=== PATIENT | male | born 1980 | race Caucasian/White ===

== ENCOUNTER 2016-06-19 17:32 | Emergency (ER) | payer SELFPAY ==
[~2016-06-19] VITALS: Ht 185.4 cm; Wt 72.6 kg
[2016-06-19] MEDS ORDERED: LORAZEPAM 1 MG TABLET PO ONE ×2 (18:00→21:00)
[2016-06-19] MEDS ORDERED: LORAZEPAM 1 MG TABLET ONE ×2 (18:01→20:52)
[2016-06-19 18:22] LABS: BASOPHILS % (AUTO) 0.7 % (0.0-2.0); DIFF TOTAL % 100 %; EOSINOPHILS # (AUTO) 0.3 /CMM (0.0-0.7); EOSINOPHILS % (AUTO) 3.9 % (0.0-6.0); HEMATOCRIT 42 % (39-51); HEMOGLOBIN 13.8 g/dL (13.5-17.5); LYMPHOCYTES # (AUTO) 1.7 /CMM (0.8-4.8); LYMPHOCYTES % (AUTO) 25.2 % (20.0-44.0); MEAN CORPUSCULAR HEMOGLOBIN 29 PG (26.0-33.0); MEAN CORPUSCULAR HGB CONC 33 g/dl (31.0-36.0); MEAN CORPUSCULAR VOLUME 86 fL (80-96); MONOCYTES # (AUTO) 0.3 /CMM (0.1-1.30); MONOCYTES % (AUTO) 5.1 % (2.0-12.0); NEUTROPHILS # (AUTO) 4.4 /CMM (1.8-8.9); NEUTROPHILS % (AUTO) 65.1 % (43.0-81.0); PLATELET COUNT (AUTO) 453 /CMM (150-450); RED BLOOD CELL COUNT(AUTO) 4.83 MIL/uL (4.5-6.0); WHITE BLOOD COUNT (AUTO) 6.8 K/uL (4.3-11.0)
[2016-06-19 18:24] LABS: CANNABINOID, URINE NEGATIVE (NEGATIVE); PHENCYCLIDINE SCREEN,URINE NEGATIVE (NEGATIVE)
[2016-06-19 18:28] LABS: ADD UA MICROSCOPIC NO; KETONES,URINE NEGATIVE (NEGATIVE); LEUKOCYTE ESTERASE ,URINE NEGATIVE (NEGATIVE); PH,URINE 6.5 (5.0-8.0)
[2016-06-19 19:16] LABS: ANION GAP 13 (5-14); CALCIUM, SERUM 9.4 mg/dL (8.5-10.1); CARBON DIOXIDE 27 mmol/L (21-32); CHLORIDE 103 mmol/L (98-107); GFR 84 mL/min (>60); GLUCOSE 102 mg/dL (74-106); POTASSIUM 4.1 mmol/L (3.5-5.1); SODIUM SERUM 139 mmol/L (136-145); UREA NITROGEN, BLOOD 8 mg/dL (7-18)
[2016-06-19 19:23] LABS: ALANINE AMINOTRANSFERASE 31 U/L (12-78); ALBUMIN 4.2 g/dL (3.4-5.0); ASPARTATE AMINOTRANSFERASE 15 U/L (15-37); BILIRUBIN,DIRECT 0.1 mg/dL (0.0-0.2); BILIRUBIN,TOTAL 0.8 mg/dL (0.2-1.0); INDIRECT BILIRUBIN 0.7 mg/dL (0.0-1.1); TOTAL PROTEIN, SERUM 7.9 g/dL (6.4-8.2)
[2016-06-19 19:27] LABS: ACETAMINOPHEN 0 ug/ml (10-30)
[2016-06-20] MEDS ORDERED: ACETAMINOPHEN ES 500 MG TABLET PO ONE
[2016-06-20] MEDS ORDERED: ACETAMINOPHEN ES 500 MG TABLET ONE (00:03)
[2016-06-20] MEDS ORDERED: LORAZEPAM 1 MG TABLET PO ONE (01:30)
[2016-06-20] MEDS ORDERED: LORAZEPAM 1 MG TABLET ONE (01:45)
[2016-06-20 01:54] VITALS: BP 124/74
== END 2016-06-20 01:54 | disposition home or self-care (01) ==
LOC: ER 17:33
DX: F41.9 Anxiety disorder, unspecified (principal); F32.9 Major depressive disorder, single episode, unspecified
CPT/HCPCS: 36415; 80048; 80076; 80305; 81001; 85025; 99284; A4606; G0480; G0481; Z7610; 81000-TC; G6039-TC

== ENCOUNTER 2017-08-21 02:45 | Emergency (ER) | payer MEDICAID, OTHER ==
[~2017-08-21] VITALS: Ht 185.4 cm; Wt 63.5 kg
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
[2017-08-21 03:06] LABS: BASOPHILS % (AUTO) 0.1 % (0.0-2.0); EOSINOPHILS % (AUTO) 0.9 % (0.0-6.0); HEMATOCRIT 27 % (39-51); HEMOGLOBIN 9.1 g/dL (13.5-17.5); LYMPHOCYTES # (AUTO) 1.7 /CMM (0.8-4.8); LYMPHOCYTES % (AUTO) 11.7 % (20.0-44.0); MEAN CORPUSCULAR HGB CONC 33 g/dl (31.0-36.0); MEAN CORPUSCULAR VOLUME 83 fL (80-96); MONOCYTES # (AUTO) 1.1 /CMM (0.1-1.30); MONOCYTES % (AUTO) 8.1 % (2.0-12.0); NEUTROPHILS # (AUTO) 11.2 /CMM (1.8-8.9); NEUTROPHILS % (AUTO) 79.2 % (43.0-81.0); PLATELET COUNT (AUTO) 589 /CMM (150-450); RDW COEFFICIENT OF VARIATION 19.5 (11.5-15.0); RED BLOOD CELL COUNT(AUTO) 3.32 MIL/uL (4.5-6.0); WHITE BLOOD COUNT (AUTO) 14.2 K/uL (4.3-11.0)
[2017-08-21 03:16] LABS: CARBON DIOXIDE 25 mmol/L (21-32); CHLORIDE 99 mmol/L (98-107); CREATININE 0.8 mg/dL (0.6-1.3); GLUCOSE 106 mg/dL (74-106); POTASSIUM 3.8 mmol/L (3.5-5.1); SODIUM SERUM 135 mmol/L (136-145); UREA NITROGEN, BLOOD 11 mg/dL (7-18)
[2017-08-21 03:22] LABS: ALANINE AMINOTRANSFERASE 59 U/L (12-78); ALBUMIN 3.3 g/dL (3.4-5.0); ALCOHOL, BLOOD < 3 mg/dL (0-0); ALKALINE PHOSPHATASE 144 U/L (46-116); ASPARTATE AMINOTRANSFERASE 23 U/L (15-37); BILIRUBIN,DIRECT 0.1 mg/dL (0.0-0.2); BILIRUBIN,TOTAL 0.5 mg/dL (0.2-1.0); TOTAL PROTEIN, SERUM 8.1 g/dL (6.4-8.2)
[2017-08-21 03:26] LABS: ACETAMINOPHEN 0 ug/ml (10-30); SALICYLATE 1.6 mg/dL (2.8-20.0)
--- NOTE | 2017-08-21 03:45 | NUR ---
PT STABLE. PSYCH CONSULT PENDING
[2017-08-21] MEDS ORDERED: AZITHROMYCIN 250 MG TABLET ONE (03:57)
[2017-08-21] MEDS ORDERED: HYDROCODONE/APAP 5/325MG 1 EACH TABLET ONE (03:57)
[2017-08-21] MEDS ORDERED: OLANZAPINE 5 MG TABLET ONE (03:58)
[2017-08-21] MEDS ORDERED: HYDROCODONE/APAP 5/325MG 1 EACH TABLET PO ONE (04:00)
[2017-08-21] MEDS ORDERED: OLANZAPINE 5 MG TABLET PO ONE (04:00)
[2017-08-21] MEDS ORDERED: AZITHROMYCIN 250 MG TABLET PO ONE (04:00)
--- NOTE | 2017-08-21 04:26 | NUR ---
ART AT BEDSIDE FOR EVAL
[2017-08-21 06:05] VITALS: BP 121/73
== END 2017-08-21 06:06 | disposition home or self-care (01) ==
LOC: ER 02:47
DX: F31.9 Bipolar disorder, unspecified (principal); F15.10 Other stimulant abuse, uncomplicated; R45.851 Suicidal ideations; Z71.6 Tobacco abuse counseling; F41.9 Anxiety disorder, unspecified; J40 Bronchitis, not specified as acute or chronic; F10.10 Alcohol abuse, uncomplicated
CPT/HCPCS: 36415; 71045-TC; 80048-TC; 80076-TC; 80305; 85025-TC; A4606; G0480; Z7610

== ENCOUNTER 2017-10-08 05:31 | Emergency (ER) | payer OTHER | END 2017-10-08 06:03 | disposition left against medical advice (07) | LOC: ER 05:35 | DX: Z53.21 Procedure and treatment not carried out due to patient leaving prior to being seen by health care provider (principal) | CPT/HCPCS: A4606; Z7610 ==

== ENCOUNTER 2017-10-20 08:30 | Emergency (ER) | payer OTHER ==
[~2017-10-20] VITALS: Ht 188 cm; Wt 63.5 kg
--- NOTE | 2017-10-20 08:35 | NUR ---
PRESENTS TO ER STATING HIS "BODY SMELL" x 2 WEEKS. NO OTHER MEDICAL COMPLAINTS AT THIS TIME, PATIENT ADMITS TO METH USE. A/OX 4, BREATHING EVEN AND UNLABORED. NO SOB, NAD, VITALS STABLE. SAFETY AND COMFORT MEASURES IN PLACE. AWAITING MD ORDERS.
--- NOTE | 2017-10-20 08:55 | NUR ---
PATIENT TAKEN TO CT VIA WHEELCHAIR.
--- NOTE | 2017-10-20 09:08 | NUR ---
PATIENT RETURNED FROM CT IN STABLE CONDITION.
[2017-10-20 09:23] LABS: HEMATOCRIT 24 % (39-51); HEMOGLOBIN 8.3 g/dL (13.5-17.5); MEAN CORPUSCULAR HGB CONC 35 g/dl (31.0-36.0); MEAN CORPUSCULAR VOLUME 72 fL (80-96); PLATELET COUNT (AUTO) 510 /CMM (150-450); RDW COEFFICIENT OF VARIATION 16.4 (11.5-15.0); RED BLOOD CELL COUNT(AUTO) 3.29 MIL/uL (4.5-6.0)
[2017-10-20 09:28] LABS: CARBON DIOXIDE 26 mmol/L (21-32); CHLORIDE 104 mmol/L (98-107); GLUCOSE 91 mg/dL (74-106); SODIUM SERUM 138 mmol/L (136-145); UREA NITROGEN, BLOOD 14 mg/dL (7-18)
[2017-10-20 09:34] LABS: ACETAMINOPHEN 0 ug/ml (10-30); ALANINE AMINOTRANSFERASE 25 U/L (12-78); ALBUMIN 3.7 g/dL (3.4-5.0); ALCOHOL, BLOOD < 3 mg/dL (0-0); ALKALINE PHOSPHATASE 80 U/L (46-116); ASPARTATE AMINOTRANSFERASE 26 U/L (15-37); BILIRUBIN,DIRECT 0.1 mg/dL (0.0-0.2); BILIRUBIN,TOTAL 0.3 mg/dL (0.2-1.0); TOTAL PROTEIN, SERUM 7.1 g/dL (6.4-8.2)
--- NOTE | 2017-10-20 09:49 | NUR ---
URINE OBTAINED AND SENT TO LAB.
[2017-10-20 09:51] LABS: APPEARANCE,URINE Slightly Cloudy (CLEAR); BILIRUBIN,URINE Negative (NEGATIVE); BLOOD, URINE Negative Ery/uL (NEGATIVE); COLOR,URINE Yellow (YELLOW); KETONES,URINE Trace (NEGATIVE); LEUKOCYTE ESTERASE ,URINE Negative (NEGATIVE); NITRITE, URINE Negative (NEGATIVE); PROTEIN,URINE Negative (NEGATIVE); UGLUCOSE Negative (NEGATIVE); UROBILINOGEN,URINE 0.2 EU/dL (0.2)
[2017-10-20 10:03] LABS: BACTERIA,URINE None seen /HPF (None Seen); RBC,URINE 0-3 /HPF (0-2); SQUAMOUS EPITHELIAL CELL,UR Rare /HPF (None Seen); WBC,URINE 0-2 /HPF (0-3)
[2017-10-20 10:29] VITALS: BP 132/82
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
[2017-10-20 12:27] LABS: EOSINOPHILS % (MANUAL) 2 % (0-4); LYMPHOCYTES % (MANUAL) 32 % (16-48); MONOCYTES % (MANUAL) 3 % (0-11.0); NEUTROPHILS % (MANUAL) 63 (42-76)
== END 2017-10-20 10:38 | disposition left against medical advice (07) ==
LOC: ER 08:31
DX: F22 Delusional disorders (principal); F15.10 Other stimulant abuse, uncomplicated; D64.9 Anemia, unspecified; R41.82 Altered mental status, unspecified; F10.10 Alcohol abuse, uncomplicated; F17.200 Nicotine dependence, unspecified, uncomplicated; F41.9 Anxiety disorder, unspecified; F31.9 Bipolar disorder, unspecified; Z59.0 Homelessness
CPT/HCPCS: 36415; 70450-TC; 70486-TC; 80048-TC; 80076-TC; 80305; 81000-TC; 85025-TC; A4606; G0480; Z7610

== ENCOUNTER 2018-04-25 07:03 | Emergency (ER) | payer OTHER ==
[~2018-04-25] VITALS: Ht 185.4 cm; Wt 74.4 kg
[2018-04-25] MEDS ORDERED: ZOLOFT (07:07)
[2018-04-25] MEDS ORDERED: CLON1TAB PO (07:07)
[2018-04-25] MEDS ORDERED: GABA-536 PO (07:07)
[2018-04-25] MEDS ORDERED: CITA40TA22 PO (07:07)
[2018-04-25] MEDS ORDERED: QUET100T PO (07:07)
[2018-04-25] MEDS ORDERED: LEXAPRO (07:07)
--- NOTE | 2018-04-25 07:10 | NUR ---
PT BIBRA 102 FOR MEDREFILL, PT JUST GOT OUT FROM [facility] 2 DAYS AGO, PT IS AOX4, NOT IN RESPIRATORY DISTRESS, V/S STABLE, KEPT RESTED AND COMFORTABLE.
--- NOTE | 2018-04-25 07:16 | NUR ---
DR. AHUJA AT BEDSIDE FOR EVAL. AWAITING MEDICAL CLEARANCE.
--- NOTE | 2018-04-25 07:22 | NUR ---
URINE COLLECTED AND SENT TO LAB. AWAITING RESULT.
[2018-04-25 07:31] LABS: BASOPHILS # (AUTO) 0.1 /CMM (0.0-0.2); BASOPHILS % (AUTO) 0.8 % (0.0-2.0); EOSINOPHILS % (AUTO) 1.1 % (0.0-6.0); HEMATOCRIT 28 % (39-51); HEMOGLOBIN 8.7 g/dL (13.5-17.5); LYMPHOCYTES # (AUTO) 1.7 /CMM (0.8-4.8); LYMPHOCYTES % (AUTO) 21.4 % (20.0-44.0); MEAN CORPUSCULAR HGB CONC 31 g/dl (31.0-36.0); MEAN CORPUSCULAR VOLUME 71 fL (80-96); MONOCYTES # (AUTO) 0.6 /CMM (0.1-1.30); MONOCYTES % (AUTO) 8.2 % (2.0-12.0); NEUTROPHILS # (AUTO) 5.4 /CMM (1.8-8.9); NEUTROPHILS % (AUTO) 68.5 % (43.0-81.0); PLATELET COUNT (AUTO) 406 /CMM (150-450); RED BLOOD CELL COUNT(AUTO) 3.93 MIL/uL (4.5-6.0); WHITE BLOOD COUNT (AUTO) 7.8 K/uL (4.3-11.0)
[2018-04-25 07:45] LABS: BAND % (MANUAL) 1 % (0.0-5.0); EOSINOPHILS % (MANUAL) 3 % (0-4); LYMPHOCYTES % (MANUAL) 20 % (16-48); MONOCYTES % (MANUAL) 7 % (0-11.0); NEUTROPHILS % (MANUAL) 69 (42-76)
[2018-04-25 07:58] LABS: CALCIUM, SERUM 8.4 mg/dL (8.5-10.1); CARBON DIOXIDE 28 mmol/L (21-32); CHLORIDE 104 mmol/L (98-107); CREATININE 0.9 mg/dL (0.6-1.3); GLUCOSE 84 mg/dL (74-106); POTASSIUM 3.6 mmol/L (3.5-5.1); SODIUM SERUM 142 mmol/L (136-145); UREA NITROGEN, BLOOD 14 mg/dL (7-18)
[2018-04-25 08:04] LABS: ALANINE AMINOTRANSFERASE 25 U/L (12-78); ALBUMIN 3.7 g/dL (3.4-5.0); ALCOHOL, BLOOD < 3 mg/dL (0-0); ALKALINE PHOSPHATASE 91 U/L (46-116); ASPARTATE AMINOTRANSFERASE 19 U/L (15-37); BILIRUBIN,TOTAL 0.2 mg/dL (0.2-1.0); SALICYLATE 2.3 mg/dL (2.8-20.0)
[2018-04-25 08:05] LABS: ACETAMINOPHEN 0 ug/ml (10-30)
--- NOTE | 2018-04-25 08:19 | NUR ---
CALL ARYA [facility] FOR PSYCH EVAL COMING AT 0930H.
[2018-04-25] MEDS ORDERED: LORAZEPAM 1 MG TABLET PO ONE (09:30)
[2018-04-25] MEDS ORDERED: LORAZEPAM 1 MG TABLET ONE (09:35)
--- NOTE | 2018-04-25 09:45 | NUR ---
ARYA PALACIOS AT BEDSIDE FOR EVAL.
--- NOTE | 2018-04-25 10:02 | NUR ---
Patient discharged to home in stable condition. Written and verbal after care instructions given. Patient verbalizes understanding of instruction.
[2018-04-25 10:03] VITALS: BP 118/76
== END 2018-04-25 10:03 | disposition home or self-care (01) ==
LOC: ER 07:06
DX: F19.151 Other psychoactive substance abuse with psychoactive substance-induced psychotic disorder with hallucinations (principal); F41.9 Anxiety disorder, unspecified; F10.129 Alcohol abuse with intoxication, unspecified; F15.10 Other stimulant abuse, uncomplicated; F11.10 Opioid abuse, uncomplicated; R44.0 Auditory hallucinations; F32.9 Major depressive disorder, single episode, unspecified; F17.200 Nicotine dependence, unspecified, uncomplicated; Z79.899 Other long term (current) drug therapy; Y90.0 Blood alcohol level of less than 20 mg/100 ml
CPT/HCPCS: 36415; 80048; 80076; 80305; 80329; 85025; 99284; A4606; G0480 ×2; Z7610

== ENCOUNTER 2018-05-15 18:30 | Inpatient (IN) | payer OTHER ==
[~2018-05-15] VITALS: Ht 188 cm; Wt 73.5 kg
[~2018-05-15 18:30] MED LIST: CITA40TA22 PO; CLON1TAB PO; GABA-536 PO; LEXAPRO; QUET100T PO; ZOLOFT
[2018-05-15] MEDS ORDERED: HYDROCODONE/APAP 10/325MG 1 EA TABLET ONE (18:56)
[2018-05-15] MEDS ORDERED: HYDROCODONE/APAP 10/325MG 1 EA TABLET PO ONE (19:00)
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
[2018-05-15] MEDS ORDERED: ONDANSETRON HCL/PF 4 MG/2 ML VIAL ONE (20:11)
[2018-05-15] MEDS ORDERED: MORPHINE SULFATE INJ 4 MG/ML DISP.SYRIN ONE (20:11)
[2018-05-15] MEDS ORDERED: CT SWABBABLE VALVE TRANS SET 1 EA INFUS.SET MC ONE (20:15)
[2018-05-15] MEDS ORDERED: IV NS 0.9% 250 ML IV ONE (20:15)
[2018-05-15] MEDS ORDERED: IOHEXOL-300 100 ML VIAL IV ONE (20:15)
[2018-05-15 20:23] LABS: BASOPHILS # (AUTO) 0.1 /CMM (0.0-0.2); BASOPHILS % (AUTO) 0.8 % (0.0-2.0); EOSINOPHILS % (AUTO) 1.7 % (0.0-6.0); HEMATOCRIT 27 % (39-51); HEMOGLOBIN 8.3 g/dL (13.5-17.5); LYMPHOCYTES # (AUTO) 1.8 /CMM (0.8-4.8); MEAN CORPUSCULAR HGB CONC 31 g/dl (31.0-36.0); MEAN CORPUSCULAR VOLUME 69 fL (80-96); MONOCYTES # (AUTO) 0.5 /CMM (0.1-1.30); MONOCYTES % (AUTO) 6.5 % (2.0-12.0); NEUTROPHILS # (AUTO) 5.7 /CMM (1.8-8.9); PLATELET COUNT (AUTO) 744 /CMM (150-450); RED BLOOD CELL COUNT(AUTO) 3.85 MIL/uL (4.5-6.0); WHITE BLOOD COUNT (AUTO) 8.2 K/uL (4.3-11.0)
[2018-05-15] MEDS ORDERED: MORPHINE SULFATE INJ 2 MG/ML DISP.SYRIN IV ONE ×2 (20:30)
[2018-05-15] MEDS ORDERED: IV NS 0.9% 500 ML BAG IV ONE (20:30)
[2018-05-15] MEDS ORDERED: ONDANSETRON HCL/PF 4 MG/2 ML VIAL IVP ONE (20:30)
[2018-05-15 20:33] LABS: CALCIUM, SERUM 8.6 mg/dL (8.5-10.1); CREATININE 0.8 mg/dL (0.6-1.3); POTASSIUM 3.8 mmol/L (3.5-5.1)
[2018-05-15 20:52] LABS: EOSINOPHILS % (MANUAL) 2 % (0-4); LYMPHOCYTES % (MANUAL) 28 % (16-48); MONOCYTES % (MANUAL) 4 % (0-11.0); NEUTROPHILS % (MANUAL) 66 (42-76)
--- NOTE | 2018-05-15 21:00 | NUR ---
PT RESTING IN BED. VSS
[2018-05-15] MEDS ORDERED: PIPERACILLIN /TAZOBACTAM 3.375 G VIAL IV ONE (21:48)
--- NOTE | 2018-05-15 21:58 | NUR ---
CALLED DR JONES FOR ORTHO CONSULT, TRANSFERRED CALL TO DR WINN
[2018-05-15] MEDS ORDERED: PIPERACILLIN /TAZOBACTAM 3.375 G in IV D5W 50 ML IV ONE (22:00)
--- NOTE | 2018-05-15 22:07 | NUR ---
BED CHANGED TO 324-1 M/S
--- NOTE | 2018-05-15 22:30 | NUR ---
REPORT GIVEN TO REGGIE SEE
[2018-05-15 23:00] VITALS: BP 120/83
--- NOTE | 2018-05-15 23:00 | NUR ---
RESIDENTIAL FRAMING CARPENTER NOTES PATIENT BROUGHT INTO THE UNIT VIA WHEELCHAIR, ABLE TO AMBULATE TO BED SAFELY, ALERT AND ORIENTED X 3, NO SOB, BREATHING EVEN AND UNLABORED, IN NO ACUTE DISTRESS, WITH C/O 5/10 PAIN LEVEL. PT VERBALIZED THAT HE IS "OKAY RIGHT NOW." ORIENTED PT TO UNIT, ROOM, CALL LIGHT, USE OF CALL LIGHT AND ADMISSION PROCESS. PT VERBALIZED UNDERSTANDING. ALL PATIENT'S NEEDS ATTENDED TO AT THIS TIME. WAITING FOR ADMISSION ORDERS. PLACED CALL LIGHT WITHIN EASY REACH. BED IN LOW POSITION AND LOCKED IN PLACE. WILL CONTINUE TO MONITOR PT.
--- NOTE | 2018-05-15 23:15 | NUR ---
RN NOTES ORIENTED PT TO HOSPITAL SMOKING REGULATIONS AND SMOKING CESSATION EDUCATION INITIATED, PT VERBALIZED UNDERSTANDING.
--- NOTE | 2018-05-15 23:15 | NUR ---
RN NOTES CALLED ER FOR PT'S SLING TO BE PLACED ON LEFT ARM, PER ER STAFF THEY WILL SEND SLING UP.
--- NOTE | 2018-05-15 23:17 | NUR ---
RN NOTE PT'S SLING PLACED ON LEFT ARM.
[2018-05-16] MEDS ORDERED: ZOLPIDEM TARTRATE 5 MG TABLET PO PRN (00:30)
[2018-05-16] MEDS ORDERED: ACETAMINOPHEN 325 MG TABLET PO PRN (00:30)
[2018-05-16] MEDS ORDERED: MORPHINE SULFATE INJ 2 MG/ML DISP.SYRIN IV PRN (00:30)
[2018-05-16] MEDS ORDERED: ONDANSETRON HCL/PF 4 MG/2 ML VIAL IVP PRN (00:30)
[2018-05-16 01:19] LABS: ALBUMIN 3.3 g/dL (3.4-5.0); BILIRUBIN,DIRECT 0.1 mg/dL (0.0-0.2); BILIRUBIN,TOTAL 0.2 mg/dL (0.2-1.0); TOTAL PROTEIN, SERUM 6.7 g/dL (6.4-8.2)
[2018-05-16] MEDS ORDERED: HYDROMORPHONE 1 MG/1 ML DISP.SYRIN IV PRN (01:30)
--- NOTE | 2018-05-16 01:30 | NUR ---
RN NOTES PT SEEN AND EXAMINED BY DR. SWAN.
[2018-05-16] MEDS: HYDROMORPHONE INJ 2 MG/ML DISP.SYRIN IV PRN ×4 (01:55→20:38)
[2018-05-16] MEDS: LORAZEPAM INJ 2 MG/ML VIAL IV PRN ×2 (03:30→10:14)
[2018-05-16] MEDS ORDERED: PIPERACILLIN /TAZOBACTAM 3.375 G VIAL IV ONE (05:05)
[2018-05-16] MEDS ORDERED: PIPERACILLIN /TAZOBACTAM 3.375 G in IV D5W 50 ML IV ONE (06:00)
[2018-05-16] MEDS ORDERED: PIPERACILLIN /TAZOBACTAM 3.375 G in IV D5W 50 ML IV SCH (06:00)
--- NOTE | 2018-05-16 06:59 | NUR ---
RN CLOSING NOTES PATIENT IN BED, ASLEEP BUT EASILY AROUSABLE,ALERT AND ORIENTED X 4, VERBALLY RESPONSIVE, NO SOB NOTED, BREATHING EVEN AND UNLABORED, IN NO ACUTE DISTRESS. PT WITH IVP ON RAC G#20, INTACT AND PATENT ON SALINE LOCK. ALL PATIENT'S NEEDS ATTENDED TO, PLACED CALL LIGHT WITHIN EASY REACH, BED IN LOW POSITION AND LOCKED IN PLACE. WILL ENDORSE TO AM SHIFT NURSE FOR CONTINUITY OF CARE.
[2018-05-16 07:14] LABS: BASOPHILS # (AUTO) 0.1 /CMM (0.0-0.2); BASOPHILS % (AUTO) 1.2 % (0.0-2.0); EOSINOPHILS % (AUTO) 3.6 % (0.0-6.0); HEMATOCRIT 25 % (39-51); MEAN CORPUSCULAR HGB CONC 32 g/dl (31.0-36.0); MEAN CORPUSCULAR VOLUME 68 fL (80-96); MONOCYTES # (AUTO) 0.5 /CMM (0.1-1.30); MONOCYTES % (AUTO) 9.4 % (2.0-12.0); NEUTROPHILS # (AUTO) 2.4 /CMM (1.8-8.9); NEUTROPHILS % (AUTO) 46.8 % (43.0-81.0); PLATELET COUNT (AUTO) 695 /CMM (150-450); RED BLOOD CELL COUNT(AUTO) 3.71 MIL/uL (4.5-6.0); WHITE BLOOD COUNT (AUTO) 5.2 K/uL (4.3-11.0)
--- NOTE | 2018-05-16 07:24 | NUR ---
RN OPENING NOTES RECEIVED PATIENT IN BED ASLEEP, EASILY AROUSE. NOT IN ANY FORM OF DISTRESS, NO SOB. DENIED PAIN OR DISCOMFORT AT THIS TIME. IV ACCESS INTACT AND PATENT. KEPT PATIENT SAFE AND COMFORTABLE. BED IN LOW/LOCKED POSITIONS, SIDERAILS UPX2, CALL LIGHT IN REACH. WILL CONTINUE TO MONIOTR ACCORDINGLY.
[2018-05-16 07:41] LABS: ALBUMIN 2.7 g/dL (3.4-5.0); BILIRUBIN,TOTAL 0.2 mg/dL (0.2-1.0); CALCIUM, SERUM 8.7 mg/dL (8.5-10.1); CREATININE 0.9 mg/dL (0.6-1.3); POTASSIUM 3.6 mmol/L (3.5-5.1); TOTAL PROTEIN, SERUM 5.7 g/dL (6.4-8.2)
[2018-05-16 08:00] VITALS: BP 114/72
[2018-05-16] MEDS: PANTOPRAZOLE 40 MG TABLET.DR PO SCH (08:28)
[2018-05-16] MEDS: NICOTINE PATCH (21MG) 21 MG PATCH.TD24 TD SCH (08:28)
[2018-05-16 09:29] LABS: EOSINOPHILS % (MANUAL) 6 % (0-4); LYMPHOCYTES % (MANUAL) 42 % (16-48); MONOCYTES % (MANUAL) 7 % (0-11.0); NEUTROPHILS % (MANUAL) 45 (42-76)
--- NOTE | 2018-05-16 10:00 | NUR ---
URINE COLLECTED, CALLED LAB FOR [employer]
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
--- NOTE | 2018-05-16 12:00 | NUR ---
WOO SPECIMEN COLLECTED, CALLED LAB FOR PAPERHANGER APPRENTICE
[2018-05-16] MEDS: PIPERACILLIN /TAZOBACTAM 3.375 G in IV D5W 100 ML IV SCH ×2 (12:06→20:05)
--- NOTE | 2018-05-16 12:27 | NUR ---
ENDORSED PATIENT TO ESA TAYLOR FOR CONTINUITY OF CARE. PATIENT IN STABLE CONDITION.
--- NOTE | 2018-05-16 12:30 | NUR ---
MS RN Note Report received from ESA Kc. No acute changes. Patient is stable condition, resting in bed. Gave PO [place] for pain management. Will continue to monitor and intervene as needed.
[2018-05-16] MEDS: HYDROCODONE/APAP 5/325MG 1 EACH TABLET PO PRN (12:31)
[2018-05-16 16:00] VITALS: BP 126/71
[2018-05-16] MEDS ORDERED: NA PHOS,M-B/NA PHOS,DI-BA 1 EA ENEMA RC PRN (16:30)
[2018-05-16] MEDS ORDERED: MAGNESIUM CITRATE 296 ML BOTTLE PO ONE (16:30)
[2018-05-16] MEDS ORDERED: PEG 3350/NA SULF,BICARB,CL/KCL 4,000 ML BOTTLE PO ONE (16:30)
[2018-05-16] MEDS: GABAPENTIN 400 MG CAPSULE PO SCH (16:40)
[2018-05-16 16:50] LABS: APPEARANCE,URINE CLEAR (CLEAR); BILIRUBIN,URINE NEGATIVE (NEGATIVE); BLOOD, URINE NEGATIVE Ery/uL (NEGATIVE); COLOR,URINE YELLOW (YELLOW); KETONES,URINE NEGATIVE (NEGATIVE); LEUKOCYTE ESTERASE ,URINE NEGATIVE (NEGATIVE); NITRITE, URINE NEGATIVE (NEGATIVE); PH,URINE 6.5 (5.0-8.0); PROTEIN,URINE NEGATIVE (NEGATIVE); UGLUCOSE NEGATIVE (NEGATIVE); UROBILINOGEN,URINE 0.2 EU/dL (0.2)
[2018-05-16 17:06] LABS: C-REACTIVE PROTEIN 1.7 mg/dL (0.0-0.9)
[2018-05-16 17:10] LABS: OCCULT BLOOD STOOL NEGATIVE (NEGATIVE)
--- NOTE | 2018-05-16 19:00 | NUR ---
MS RN Closing Note Patient currently awake, resting in bed. Patient alert and oriented x 4, able to make needs known verbally. Respirations even and unlabored on room air. Peripheral IV access to the right AC 20 gauge, intact, patent and saline locked. Sling to left arm in place, seen by ortho team, no surgical intervention. Advanced to regular diet. Safety and Fall precautions in place: bed in lowest and locked position, side rails up x 2, bed alarm on, call light within reach. Reviewed safety measures and plan of care with patient, verbalized understanding. Will endorse to cardroom worker RN for continuity of care.
--- NOTE | 2018-05-16 19:13 | NUR ---
RN NOTES RECEIVED PT IN BED, AWAKE, ALERT AND ORIENTED X 4, NO SOB, IN NO ACUTE DISTRESS, DR. SMALLS AT BEDSIDE. ALL PATIENT'S NEEDS ATTENDED TO AT THIS TIME. PLACED CALL LIGHT WITHIN EASY REACH. WILL CONTINUE TO MONITOR PT.
[2018-05-16 20:00] VITALS: BP 124/71
[2018-05-16] MEDS ORDERED: QUETIAPINE FUMARATE 100 MG TABLET PO SCH (22:00)
[2018-05-17] MEDS: PIPERACILLIN /TAZOBACTAM 3.375 G in IV D5W 100 ML IV SCH ×2 (04:03→11:58)
--- NOTE | 2018-05-17 06:25 | NUR ---
RN CLOSING NOTES PT IN BED, ASLEEP BUT EASILY AROUSABLE, ALERT AND ORIENTED X 3, IN NO ACUTE DISTRESS. ALL PATIENT'S NEEDS ATTENDED TO THROUGHOUT THE SHIFT, PATIENT WITH GOOD SAFETY AWARENESS. PLACED CALL LIGHT WITHIN EASY REACH. BED IN LOW POSITION AND LOCKED IN PLACE. IVP ON RAC G#20 INTACT AND PATENT ON SALINE LOCK. PT WITH LEFT ARM SLING IN PLACE. WILL ENDORSE TO AM SHIFT FOR CONTINUITY OF CARE.
[2018-05-17 06:35] LABS: BASOPHILS # (AUTO) 0.1 /CMM (0.0-0.2); BASOPHILS % (AUTO) 1.1 % (0.0-2.0); EOSINOPHILS % (AUTO) 3.8 % (0.0-6.0); HEMATOCRIT 27 % (39-51); HEMOGLOBIN 8.6 g/dL (13.5-17.5); LYMPHOCYTES % (AUTO) 38.4 % (20.0-44.0); MEAN CORPUSCULAR HGB CONC 32 g/dl (31.0-36.0); MEAN CORPUSCULAR VOLUME 68 fL (80-96); MONOCYTES # (AUTO) 0.4 /CMM (0.1-1.30); MONOCYTES % (AUTO) 7.4 % (2.0-12.0); NEUTROPHILS # (AUTO) 2.5 /CMM (1.8-8.9); NEUTROPHILS % (AUTO) 49.3 % (43.0-81.0); PLATELET COUNT (AUTO) 649 /CMM (150-450); RED BLOOD CELL COUNT(AUTO) 3.95 MIL/uL (4.5-6.0); WHITE BLOOD COUNT (AUTO) 5.2 K/uL (4.3-11.0)
[2018-05-17] MEDS: PANTOPRAZOLE 40 MG TABLET.DR PO SCH (06:45)
[2018-05-17 06:48] LABS: CALCIUM, SERUM 8.4 mg/dL (8.5-10.1); MAGNESIUM 1.9 mg/dL (1.8-2.4); POTASSIUM 3.9 mmol/L (3.5-5.1)
--- NOTE | 2018-05-17 07:24 | NUR ---
MS/RN Patient received Patient received from computational chemist. A/O X3-4, vital signs stable, denies any pain or discomfort at this time. Left arm remains elevated on pillows to help reduce edema. Call light within reach, bed in low setting. Will continue to monitor and ensure safety.
[2018-05-17 08:00] VITALS: BP 115/59
[2018-05-17] MEDS: NICOTINE PATCH (21MG) 21 MG PATCH.TD24 TD SCH (08:34)
[2018-05-17] MEDS: GABAPENTIN 400 MG CAPSULE PO SCH ×3 (08:34→16:33)
[2018-05-17] MEDS: HYDROCODONE/APAP 5/325MG 1 EACH TABLET PO PRN ×2 (08:41→16:33)
--- NOTE | 2018-05-17 08:51 | NUR ---
MS/RN Pain Complaining of pain to left shoulder 11/21. [place] 5/325mg administered, will monitor effectiveness.
[2018-05-17] MEDS ORDERED: CITALOPRAM HYDROBROMIDE 20 MG TABLET PO SCH (09:00)
[2018-05-17] MEDS ORDERED: clonazePAM 1 MG TABLET PO SCH (09:00)
--- NOTE | 2018-05-17 11:01 | NUR ---
MS/RN S/B Dr Monk Seen by Dr Monk - patient to be discharged today, instructed to follow up with orthopedic surgeons for re-evaluation of left shoulder fracture.
--- NOTE | 2018-05-17 11:59 | NUR ---
MS/RN Exit care Exit care signed by patient, provided with copies. Education given to patient regarding the importance of following up with primary care doctor and ortho for the shoulder fracture. Patient stating that he will go to [facility] today as that is were his insurance usually want him to go. Refused lunch time dose of zosyn, stating that as he was going home it wasn't needed.
[2018-05-17 16:00] VITALS: BP 120/66
--- NOTE | 2018-05-17 16:06 | NUR ---
MS/RN Heplock removed Heplock and name bands removed.
--- NOTE | 2018-05-17 18:16 | NUR ---
MS/planning feeder Patient discharged in stable condition. Provided with resource information from disc pad knockout worker earlier in day. Educated patient as to the importance of following up with ortho for fracture, patient again stated understanding. Provided with copy of medical record and exit care. All personal belongings with patient and signed for on belongings list. Heplock and name band previously removed. Escorted to main lobby.
[2018-05-18 12:10] LABS: *ANCANTIMYELOPEROXIDASE (MPO) <9.0 U/mL (0.0-9.0); *ANCANTIPROTEINASE 3 (PR-3) AB <3.5 U/mL (0.0-3.5)
[2018-05-18 13:12] LABS: *ANCA ATYPICAL p-ANCA <1:20 titer (Neg:<1:20); *ANCA CYTOPLASMIC (C-ANCA) <1:20 titer (Neg:<1:20); *ANCA PERINUCLEAR (P-ANCA) <1:20 titer (Neg:<1:20)
== END 2018-05-17 18:00 | disposition home or self-care (01) | DRG 342 ==
LOC: ER 18:31 → MED 21:57
PROVIDERS: ADMIT Internal Medicine; ATTEND Internal Medicine
DX: S42.115A Nondisplaced fracture of body of scapula, left shoulder, initial encounter for closed fracture (principal); K92.2 Gastrointestinal hemorrhage, unspecified; A09 Infectious gastroenteritis and colitis, unspecified; D50.9 Iron deficiency anemia, unspecified; F17.210 Nicotine dependence, cigarettes, uncomplicated; F19.90 Other psychoactive substance use, unspecified, uncomplicated; S22.32XA Fracture of one rib, left side, initial encounter for closed fracture; F39 Unspecified mood [affective] disorder; S22.31XA Fracture of one rib, right side, initial encounter for closed fracture; Y04.0XXA Assault by unarmed brawl or fight, initial encounter; Y93.01 Activity, walking, marching and hiking; Y92.414 Local residential or business street as the place of occurrence of the external cause; Z59.0 Homelessness; F41.9 Anxiety disorder, unspecified
CPT/HCPCS: 36415; 70450-TC; 71111-TC; 71260-TC; 72125-TC; 73030-TC; 73060-TC; 80048-TC; 80053-TC; 80076-TC; 80305; 81000-TC; 82272-TC; 82550-TC; 82728-TC; 83520; 83540-TC; 83735-TC; 84100-TC; 85025-TC; 85652-TC; 85730-TC; 86140-TC; 86256; 87081-TC; 89055; G0378; J1170; J2060; J2270; J2405; J2543; J7040; J7050; J7060; Q9967

== ENCOUNTER 2018-07-16 16:09 | Emergency (ER) | payer OTHER ==
[~2018-07-16] VITALS: Ht 182.9 cm; Wt 68.0 kg
--- NOTE | 2018-07-16 16:10 | NUR ---
PT [id number] [facility] C/O LOWER ABDOMINAL PAIN R/T LOWER BACK X 1 HOUR, PT IS AAOX4, NOT IN RESPIRATORY DISTRESS, V/S STABLE, KEPT RESTED AND COMFORTABLE.
--- NOTE | 2018-07-16 16:32 | NUR ---
PT SEEN AND EXAMINED BY DR. BOBBY.
[2018-07-16] MEDS ORDERED: ONDANSETRON HCL/PF 4 MG/2 ML VIAL ONE (16:40)
[2018-07-16] MEDS ORDERED: KETOROLAC TROMETHAMINE INJ 30 MG/ML VIAL ONE (16:40)
[2018-07-16] MEDS ORDERED: MORPHINE SULFATE INJ 4 MG/ML DISP.SYRIN ONE (16:40)
--- NOTE | 2018-07-16 16:50 | NUR ---
IV LINE ESTABLISHED, LABS DRAWNED AND SENT TO LAB.
[2018-07-16] MEDS ORDERED: ONDANSETRON HCL/PF 4 MG/2 ML VIAL IVP ONE (17:00)
[2018-07-16] MEDS ORDERED: KETOROLAC TROMETHAMINE INJ 30 MG/ML VIAL IV ONE (17:00)
[2018-07-16] MEDS ORDERED: IV NS 0.9% 1,000 ML BAG IV ONE (17:00)
[2018-07-16] MEDS ORDERED: MORPHINE SULFATE INJ 2 MG/ML DISP.SYRIN IV ONE (17:00)
[2018-07-16 17:10] LABS: BASOPHILS # (AUTO) 0.1 /CMM (0.0-0.2); BASOPHILS % (AUTO) 0.6 % (0.0-2.0); EOSINOPHILS % (AUTO) 1.4 % (0.0-6.0); HEMATOCRIT 35 % (39-51); HEMOGLOBIN 11.3 g/dL (13.5-17.5); LYMPHOCYTES # (AUTO) 1.2 /CMM (0.8-4.8); LYMPHOCYTES % (AUTO) 12.4 % (20.0-44.0); MEAN CORPUSCULAR HGB CONC 32 g/dl (31.0-36.0); MEAN CORPUSCULAR VOLUME 78 fL (80-96); MONOCYTES # (AUTO) 0.4 /CMM (0.1-1.30); MONOCYTES % (AUTO) 4.5 % (2.0-12.0); NEUTROPHILS # (AUTO) 7.6 /CMM (1.8-8.9); NEUTROPHILS % (AUTO) 81.1 % (43.0-81.0); PLATELET COUNT (AUTO) 382 /CMM (150-450); RED BLOOD CELL COUNT(AUTO) 4.51 MIL/uL (4.5-6.0); WHITE BLOOD COUNT (AUTO) 9.4 K/uL (4.3-11.0)
[2018-07-16 17:19] LABS: CALCIUM, SERUM 9.4 mg/dL (8.5-10.1); POTASSIUM 4.2 mmol/L (3.5-5.1)
[2018-07-16 17:25] LABS: ALBUMIN 3.8 g/dL (3.4-5.0); BILIRUBIN,DIRECT 0.1 mg/dL (0.0-0.2); BILIRUBIN,TOTAL 0.2 mg/dL (0.2-1.0); TOTAL PROTEIN, SERUM 7.2 g/dL (6.4-8.2)
[2018-07-16] MEDS ORDERED: IOHEXOL-300 100 ML VIAL IV ONE (17:30)
[2018-07-16] MEDS ORDERED: CT SWABBABLE VALVE TRANS SET 1 EA INFUS.SET MC ONE (17:30)
[2018-07-16] MEDS ORDERED: IV NS 0.9% 250 ML IV ONE (17:30)
--- NOTE | 2018-07-16 17:30 | NUR ---
PT IS WHEELD [facility]
[2018-07-16 17:43] LABS: APPEARANCE,URINE Clear (CLEAR); BILIRUBIN,URINE Negative (NEGATIVE); BLOOD, URINE Negative Ery/uL (NEGATIVE); COLOR,URINE Yellow (YELLOW); KETONES,URINE Negative (NEGATIVE); LEUKOCYTE ESTERASE ,URINE Negative (NEGATIVE); NITRITE, URINE Negative (NEGATIVE); PH,URINE 8.5 (5.0-8.0); PROTEIN,URINE 30 mg/dl (NEGATIVE); UGLUCOSE Negative (NEGATIVE); UROBILINOGEN,URINE 0.2 EU/dL (0.2)
[2018-07-16 17:58] LABS: BACTERIA,URINE Few /HPF (None Seen); MUCUS,URINE Few /LPF (None Seen); RBC,URINE NONE SEEN /HPF (0-2); SQUAMOUS EPITHELIAL CELL,UR None Seen /HPF (None Seen); WBC,URINE NONE SEEN /HPF (0-3)
[2018-07-16] MEDS ORDERED: MAGNESIUM CITRATE 296 ML BOTTLE PO ONE (18:30)
[2018-07-16] MEDS ORDERED: MAGNESIUM CITRATE 296 ML BOTTLE ONE (19:37)
--- NOTE | 2018-07-16 19:49 | NUR ---
IV removed. Catheter intact and site benign. Pressure and 4x4 applied to site. No bleeding noted. Patient given written and verbal discharge instructions. Patient verbalizes understanding of instructions. Patient is ambulatory with steady gait. Patient given list of available shelters in surrounding area.
[2018-07-16 19:52] VITALS: BP 121/76
== END 2018-07-16 19:54 | disposition home or self-care (01) ==
LOC: ER 16:11
DX: K59.00 Constipation, unspecified (principal); F41.9 Anxiety disorder, unspecified; F32.9 Major depressive disorder, single episode, unspecified; F17.200 Nicotine dependence, unspecified, uncomplicated; F15.10 Other stimulant abuse, uncomplicated; Z76.5 Malingerer [conscious simulation]; Z59.0 Homelessness
CPT/HCPCS: 36415; 74177; 80048; 80076; 81001; 83690; 85025; 96374; 96375; 99284; A4606; J1885; J2270; J2405; J7030; J7050; Q9967; 81000-TC

== ENCOUNTER 2018-09-15 01:39 | Emergency (ER) | payer OTHER ==
[~2018-09-15] VITALS: Ht 165.1 cm; Wt 59.0 kg
[2018-09-15 02:06] VITALS: BP 109/76
[2018-09-15] MEDS ORDERED: LORAZEPAM INJ 2 MG/ML VIAL IM ONE (03:00)
[2018-09-15] MEDS ORDERED: LORAZEPAM INJ 2 MG/ML VIAL ONE (03:05)
== END 2018-09-15 06:14 | disposition home or self-care (01) ==
LOC: ER 01:41
DX: F41.9 Anxiety disorder, unspecified (principal); F15.10 Other stimulant abuse, uncomplicated; F32.9 Major depressive disorder, single episode, unspecified; F17.200 Nicotine dependence, unspecified, uncomplicated; Z76.5 Malingerer [conscious simulation]
CPT/HCPCS: 96372; 99284; J2060

== ENCOUNTER 2019-03-24 13:35 | Emergency (ER) | payer OTHER ==
[~2019-03-24] VITALS: Ht 182.9 cm; Wt 72.6 kg
[2019-03-24] MEDS ORDERED: KETOROLAC TROMETHAMINE INJ 30 MG/ML VIAL IV ONE (14:00)
[2019-03-24] MEDS ORDERED: ONDANSETRON HCL/PF 4 MG/2 ML VIAL IV ONE (14:00)
[2019-03-24] MEDS ORDERED: IV NS 0.9% 1,000 ML BAG IV ONE (14:00)
[2019-03-24] MEDS ORDERED: KETOROLAC TROMETHAMINE INJ 30 MG/ML VIAL ONE (14:01)
[2019-03-24] MEDS ORDERED: ONDANSETRON HCL/PF 4 MG/2 ML VIAL ONE (14:01)
[2019-03-24 14:10] LABS: BASOPHILS # (AUTO) 0.2 /CMM (0.0-0.2); BASOPHILS % (AUTO) 1.9 % (0.0-2.0); EOSINOPHILS % (AUTO) 0.5 % (0.0-6.0); HEMATOCRIT 22 % (39-51); LYMPHOCYTES # (AUTO) 2.6 /CMM (0.8-4.8); LYMPHOCYTES % (AUTO) 31.9 % (20.0-44.0); MEAN CORPUSCULAR HGB CONC 30 g/dl (31.0-36.0); MEAN CORPUSCULAR VOLUME 61 fL (80-96); MONOCYTES # (AUTO) 0.4 /CMM (0.1-1.30); NEUTROPHILS % (AUTO) 60.7 % (43.0-81.0); PLATELET COUNT (AUTO) 697 /CMM (150-450); RED BLOOD CELL COUNT(AUTO) 3.66 MIL/uL (4.5-6.0); WHITE BLOOD COUNT (AUTO) 8.2 K/uL (4.3-11.0)
[2019-03-24 14:12] LABS: HEMOGLOBIN 6.7 g/dL (13.5-17.5)
[2019-03-24 14:25] LABS: CALCIUM, SERUM 9.8 mg/dL (8.5-10.1); POTASSIUM 4.1 mmol/L (3.5-5.1)
[2019-03-24] MEDS ORDERED: GABA-534 PO (14:25)
[2019-03-24] MEDS ORDERED: ESCI10TA PO (14:25)
[2019-03-24 14:30] LABS: ALBUMIN 3.7 g/dL (3.4-5.0); BILIRUBIN,DIRECT 0.1 mg/dL (0.0-0.2); BILIRUBIN,TOTAL 0.4 mg/dL (0.2-1.0); TOTAL PROTEIN, SERUM 7.7 g/dL (6.4-8.2)
--- NOTE | 2019-03-24 14:48 | NUR ---
Patient awake alert orreinted complain of pain 10/ noted no nausea and vomit Provider aware regarding blood test
[2019-03-24] MEDS ORDERED: IV NS 0.9% 250 ML IV ONE (14:49)
[2019-03-24] MEDS ORDERED: IOHEXOL-300 100 ML VIAL IV ONE (14:49)
[2019-03-24] MEDS ORDERED: CT SWABBABLE VALVE TRANS SET 1 EA INFUS.SET MC ONE (14:49)
[2019-03-24] MEDS ORDERED: MORPHINE SULFATE INJ 2 MG/ML DISP.SYRIN IV ONE (15:00)
[2019-03-24] MEDS ORDERED: MORPHINE SULFATE INJ 4 MG/ML DISP.SYRIN ONE (15:03)
--- NOTE | 2019-03-24 15:13 | NUR ---
GAVE ADMITTING CLINICALS
[2019-03-24 15:22] LABS: OCCULT BLOOD STOOL NEGATIVE (NEGATIVE)
--- NOTE | 2019-03-24 15:29 | NUR ---
CAT-CM FOR PREFERRED IPA .
--- NOTE | 2019-03-24 15:38 | NUR ---
Patient to Ct awaiting for result
[2019-03-24 15:52] LABS: APPEARANCE,URINE Clear (CLEAR); BILIRUBIN,URINE Negative (NEGATIVE); BLOOD, URINE Negative Ery/uL (NEGATIVE); COLOR,URINE Yellow (YELLOW); KETONES,URINE 15 (NEGATIVE); LEUKOCYTE ESTERASE ,URINE Negative (NEGATIVE); NITRITE, URINE Negative (NEGATIVE); PH,URINE 7.5 (5.0-8.0); PROTEIN,URINE Negative (NEGATIVE); UGLUCOSE Negative (NEGATIVE); UROBILINOGEN,URINE 0.2 EU/dL (0.2)
[2019-03-24] MEDS ORDERED: clonazePAM 1 MG TABLET ONE (15:59)
[2019-03-24] MEDS ORDERED: clonazePAM 1 MG TABLET PO ONE (16:00)
--- NOTE | 2019-03-24 16:00 | NUR ---
Patient awake alert demanding yelling cursing wors towards staff ,patient stated tremors to bilater legs Provider aware with orders
[2019-03-24 16:07] LABS: BACTERIA,URINE Few /HPF (None Seen); RBC,URINE 0-2 /HPF (0-2); SQUAMOUS EPITHELIAL CELL,UR Rare /HPF (None Seen); WBC,URINE 0-2 /HPF (0-3)
[2019-03-24 16:17] LABS: EOSINOPHILS % (MANUAL) 2 % (0-4); LYMPHOCYTES % (MANUAL) 23 % (16-48); NEUTROPHILS % (MANUAL) 75 (42-76)
--- NOTE | 2019-03-24 16:34 | NUR ---
Patient requesting for food and pain meds ,Sushil LEDEZMA @ bedside
--- NOTE | 2019-03-24 16:35 | NUR ---
PT AWAKE AND ALERT NOTED, NOTED VS NORMAL, NOT ACTIVELY BLEEDING, LUNGS CLEAR, NO SOB, 97% ON RA. PT KEPT ON ASKING SAME QUESTIONS AND BEING REPETETIVE AND VERY DEMANDING AND CALLED [facility] NOTED AT BEDSIDE. PT MADE AWARE, PLAN OF CARE FOR POSSIBLE TRANSFER.
--- NOTE | 2019-03-24 17:01 | NUR ---
NO BLOOD TRANSFUSION PER [facility]. PT ACCEPTED AT [facility] ACCEPTING DR PATI CROCKETT.
--- NOTE | 2019-03-24 17:43 | NUR ---
TRANSFER INFO: PER ALO ESCOBAR, PT EMMANUEL PRES DIRECT ADMIT TO ROOM [facility], PLEASE CALL RN FOR REPORT AFTER 193 AT [phone] EXT [phone] TRANSORT ETA TO FOLLOW
--- NOTE | 2019-03-24 18:08 | NUR ---
CHING ETA IS 21:00. TICKET # [id number].
--- NOTE | 2019-03-24 18:35 | NUR ---
Given report to Jackie Gilliland Rn patient room # [id number] [phone] [place] [employer]
--- NOTE | 2019-03-24 19:28 | NUR ---
Transfer care report to Brianna Napoles
--- NOTE | 2019-03-24 20:15 | NUR ---
Patient is resting comfortably in bed with eyes closed. Easily aroused. VSS
--- NOTE | 2019-03-24 21:20 | NUR ---
UPDATED ETA FOR TRANSPORT IS 21:50
[2019-03-24 21:40] VITALS: BP 111/68
--- NOTE | 2019-03-24 21:41 | NUR ---
REPORT GIVEN TO SHOP TAILOR FROM [facility]
--- NOTE | 2019-03-24 22:00 | NUR ---
PT WAS TRANSFERRED TO [facility] VIA [facility] in stable condition.
== END 2019-03-24 22:00 | disposition short-term general hospital (02) ==
LOC: ER 13:35
DX: D64.9 Anemia, unspecified (principal); F19.10 Other psychoactive substance abuse, uncomplicated; R10.84 Generalized abdominal pain; F11.90 Opioid use, unspecified, uncomplicated; F41.9 Anxiety disorder, unspecified; F32.9 Major depressive disorder, single episode, unspecified; F17.200 Nicotine dependence, unspecified, uncomplicated; F15.10 Other stimulant abuse, uncomplicated; Z76.5 Malingerer [conscious simulation]; Z79.899 Other long term (current) drug therapy; Z59.0 Homelessness; Z85.038 Personal history of other malignant neoplasm of large intestine
CPT/HCPCS: 36415; 74177; 80048; 80076; 81001; 82272; 83605 ×2; 83690; 85025; 86850; 96374; 96375; 99285; J1885; J2270; J2405; J7030 ×3; J7050; Q9967; 81000-TC